=== PATIENT | female | born 1995 | race Native Hawaiian/Other Pacific Islander ===

== ENCOUNTER 2023-09-19 07:30 | Emergency (ER) | payer OTHER ==
[~2023-09-19] VITALS: Ht 152.4 cm; Wt 59.0 kg
[2023-09-19 08:17] LABS: PLATELET COUNT 281 K/uL (152-353)
[2023-09-19 09:00] LABS: POTASSIUM 4.1 mmol/L (3.6-5.2); SODIUM 139 mmol/L (136-145)
[2023-09-19 09:45] VITALS: BP 105/73; TEMP 98.2
== END 2023-09-19 09:45 | disposition home or self-care (01) ==
LOC: ED 07:30
PROVIDERS: Family Medicine
DX: R07.89 Other chest pain (principal)
CPT/HCPCS: 80053; 80307; 81025; 84484; 85027; 85379; 93005; 96372; 99283; J1885